=== PATIENT | male | born 1985 | race Caucasian/White ===

== ENCOUNTER 2017-10-20 08:25 | Inpatient (IN) | payer OTHER ==
[2017-10-20 10:42] VITALS: BMI 27.9
--- NOTE | 2017-10-20 10:42 | HP ---
Admission ROS [facility] Chief Complaint: Patient presents for Marajuana dependence. History of Present Illness: Patient presents for Marajuana dependence. Has history of Bipolar and Schizophrenia. Currently lives in detention in [place] and is unemployed. Patient started using Marajuana at age 19. Smokes up to one bag daily. Also reports he sniffs cocaine at least once a month. Denies ETOH and Heroin use. Last time he smoked Marajuana was 10/19/17 and used cocaine was over one week ago. Denies attempting rehab in past. Denies SI/HI and suicide attempts. Exam Limitations: No Limitations - Ebola screening Have you traveled outside of the country in the last 21 days: No (N) Have you had contact with anyone from an Ebola affected area: No Have you been sick,other than usual withdrawal symptoms: No Do you have a fever: No - Review of Systems Constitutional: Changes in sleep, Weight Stable EENT: reports: Blurred Vision Respiratory: reports: No Symptoms reported Cardiac: reports: No Symptoms Reported GI: reports: No Symptoms Reported : reports: No Symptoms Reported Musculoskeletal: reports: No Symptoms Reported Integumentary: reports: No Symptoms Reported Neuro: reports: Headache Endocrine: reports: No Symptoms Reported Hematology: reports: No Symptoms Reported (Confused to date, but knows month and year.) Psychiatric: reports: Anxious, Depressed, Disorientated Patient History - Patient Medical History Hx Anemia: No Hx Asthma: No Hx Chronic Obstructive Pulmonary Disease (COPD): No Hx Cancer: No Hx Cardiac Disorders: No Hx Congestive Heart Failure: No Hx Hypertension: No Hx Hypercholesterolemia: No Hx Pacemaker: No HX Cerebrovascular Accident: No Hx Seizures: No Hx Dementia: No Hx Diabetes: No Hx Gastrointestinal Disorders: No Hx Liver Disease: No Hx Genitourinary Disorders: No Hx Sexually Transmitted Disorders: No Hx Renal Disease (ESRD): No Hx Thyroid Disease: No Hx Human Immunodeficiency Virus (HIV): No Hx Hepatitis C: No Hx Depression: Yes Hx Suicide Attempt: No Hx Bipolar Disorder: Yes Hx Schizophrenia: Yes - Patient Surgical History Past Surgical History: No Hx Neurologic Surgery: No Hx Cataract Extraction: No Hx Cardiac Surgery: No Hx Lung Surgery: No Hx Breast Surgery: No Hx Breast Biopsy: No Hx Abdominal Surgery: No Hx Appendectomy: No Hx Cholecystectomy: No Hx Genitourinary Surgery: No Hx Orthopedic Surgery: No Anesthesia Reaction: No - PPD History Previous Implant?: Yes Documented Results: Negative w/o proof Implanted On Prior [facility] Admission?: No PPD to be Administered?: Yes - Smoking Cessation Smoking history: Current every day smoker Have you smoked in the past 12 months: Yes Aproximately how many cigarettes per day: 10 Hx Chewing Tobacco Use: No Initiated information on smoking cessation: Yes 'Breaking Loose' booklet given: 10/20/17 - Substance & Tx. History Hx Alcohol Use: No Hx Substance Use: Yes Substance Use Type: Cocaine, Marijuana Hx Substance Use Treatment: No Family Disease History - Family Disease History Family History: Unremarkable Admission Physical Exam [facility] - Physical General Appearance: Yes: Anxious HEENTM: Yes: EOMI, Hearing grossly Normal, Normal ENT Inspection, Normocephalic , Normal Voice, GILLIAN, Pharynx Normal Respiratory: Yes: Chest Non-Tender, Lungs Clear, Normal Breath Sounds, No Respiratory Distress, No Accessory Muscle Use Neck: Yes: No masses,lesions,Nodules, Supple, Trachea in good position Breast: Yes: Breast Exam Deferred Cardiology: Yes: Regular Rhythm, Regular Rate, S1, S2 Abdominal: Yes: Normal Bowel Sounds, Non Tender, Soft Genitourinary: Yes: Within Normal Limits Back: Yes: Within Normal Limits, Normal Inspection Musculoskeletal: Yes: Within Normal Limits, full range of Motion, Gait Steady Extremities: Yes: Within Normal Limits, Normal Inspection, Normal Range of Motion, Non-Tender Neurological: Yes: bowling pin refinisher II-XII NML intact, Alert, Motor Strength 5/5, Confused ( Date unknown), Depressed Affect Integumentary: Yes: Normal Color, Dry, Warm Lymphatic: Yes: Within Normal Limits - Diagnostic (1) Marijuana dependence Current Visit: Yes Status: Acute (2) Cocaine use Current Visit: Yes Status: Acute (3) Schizophrenia Current Visit: Yes Status: Acute Qualifiers: Schizophrenia type: unspecified Qualified Code(s): F20.9 - Schizophrenia, unspecified (4) Bipolar disorder Current Visit: Yes Status: Acute Qualifiers: Current episode severity: unspecified (5) Nicotine dependence Current Visit: Yes Status: Acute Qualifiers: Nicotine product type: unspecified Cleared for Admission [facility] - Detox or Rehab Claeared for Rehab Admission: Yes [facility] Breath Alcohol Content Breath Alcohol Content: 0 Urine Drug Screen - Results Urine Drug Screen Results: THC-Marijuana Inpatient Rehab Admission - Initial Determination Are CD services needed?: Yes Free of communicable disease: Yes Not in need of hospitalization: Yes - Rehab Admission Criteria Previous failed treatment: Yes Poor recovery environment: Yes Comorbidities: Yes Lacks judgement: Yes Patient is meeting Inpatient Rehab admission criteria:: Yes
[2017-10-20] MEDS ORDERED: MAGNESIUM HYDROX 2400MG/30ML ORAL SUSPENSION 30 ML CUP PO PRN (10:53)
[2017-10-20] MEDS ORDERED: NICOTINE POLACRILEX 2 MG GUM BC PRN (10:53)
[2017-10-20] MEDS ORDERED: MAGNESIUM CITRATE 300 ML BOTTLE PO PRN (10:53)
[2017-10-20] MEDS ORDERED: ACETAMINOPHEN 325 MG TABLET (FP) PO PRN (10:53)
[2017-10-20] MEDS ORDERED: P-EPHED 60MG/TRIPROLIDI 2.5MG TABLET PO PRN (10:53)
[2017-10-20] MEDS ORDERED: MAG HYDROX/AL HYDROX/SIMETH 30 ML UNIT-DOSE CUP PO PRN (10:53)
[2017-10-20] MEDS ORDERED: IBUPROFEN 400 MG TABLET (FP) PO PRN (10:53)
[2017-10-20] MEDS ORDERED: guaiFENesin/D-METHORPHAN HB 10 ML UNIT-DOSE CUPS PO PRN (10:53)
[2017-10-20] MEDS ORDERED: MENTHOL/PHENOL 1 EACH UD MM PRN (10:53)
[2017-10-20] MEDS ORDERED: LOPERAMIDE HCL 2 MG CAPSULE PO PRN (10:53)
[2017-10-20 14:53] LABS: HEMATOCRIT 38.7 % (35.4-49); HEMOGLOBIN 12.9 GM/dL (11.7-16.9); MCH 28.6 pg (25.7-33.7); MCHC 33.3 g/dl (32.0-35.9); MEAN PLT VOLUME 8.2 fl (7.5-11.1); PLATELET COUNT 259 K/MM3 (134-434); RDW 16.4 % (11.9-15.9); WHITE BLOOD COUNT 12.7 K/mm3 (4.0-10.0)
[2017-10-20 15:08] LABS: CHLORIDE 109 mmol/L (98-107); POTASSIUM 3.4 mmol/L (3.5-5.1); SODIUM 144 mmol/L (136-145)
[2017-10-20 15:36] LABS: ALBUMIN 4.2 g/dl (3.4-5.0); ALK PHOS 63 U/L (45-117); ANION GAP 9 (8-16); BILIRUBIN,TOTAL 0.3 mg/dL (0.2-1.0); BLOOD UREA NITROGEN 11 mg/dL (7-18); CALCIUM 8.6 mg/dL (8.5-10.1); CO2 26 mmol/L (21-32); CREATININE 0.9 mg/dL (0.7-1.3); GLUCOSE,RANDOM 98 mg/dL (74-106); SGOT/AST 22 U/L (15-37); SGPT/ALT 23 U/L (12-78); TOT PROT 7.8 g/dl (6.4-8.2)
[2017-10-20] MEDS ORDERED: TUBERCULIN PPD 5 TU/0.1ML VIAL ID ONE (16:55)
[2017-10-20] MEDS ORDERED: MELATONIN 5 MG TABLETS PO PRN (22:00)
[2017-10-21] MEDS: THIAMINE HCL 100 MG TABLET (FP) PO SCH ×2 (04:05→22:56)
[2017-10-21] MEDS: traZODone HCL 50 MG TABLET (FP) PO SCH ×2 (04:05→22:56)
[2017-10-21 07:05] VITALS: BP 113/70; PULSE 78; TEMP 97.8
[2017-10-21] MEDS: PRENATAL VITAMINS W/ FOLIC ACID TABLET (FP) PO SCH (10:11)
[2017-10-21] MEDS: NICOTINE 21 MG/24 HOURS TOPICAL PATCH TD SCH (10:12)
--- NOTE | 2017-10-21 11:30 | EKG ---
Test Reason : Blood Pressure : / mmHG Vent. Rate : 064 BPM Atrial Rate : 064 BPM P-R Int : 134 ms QRS Dur : 096 ms QT Int : 374 ms P-R-T Axes : 040 059 050 degrees QTc Int : 385 ms NORMAL SINUS RHYTHM WITH SINUS ARRHYTHMIA NORMAL ECG NO PREVIOUS ECGS AVAILABLE Confirmed by LINDA MARTI MD ([id number]) on 10/21/2017 11:30:20 AM Referred By: Confirmed By:LINDA MARTI MD
--- NOTE | 2017-10-21 13:22 | HP ---
Psychiatrist Admission - Data Date of interview: 10/21/17 Admission source: [facility] Identifying data: This is the first 5N inpatient rehabilitation admission for this 32 year old single male residing in [facility]. Medical History: reports a good physical health, smokes cigarettes 10 a day. Psychiatric History: patient is poor historian, reports was diagnosed as "bipolar, schizophrenia", first psychiatric contact at age of 21, unable to recall details of his visit, admits one or two psychiatric hospitalizations , states he currently on seroquel trazodone, cogentin and abilify, unknown dosage , then later reported that he gats injectible abilify and had it last week, again does not know dosage. He reports he sees the psychiatrist at [facility] , last took medications 2 days ago, reports history of auditory hallucinations, denies experiencing at present time, denies history of suicidal or homicidal thoughts/attempts. Physical/Sexual Abuse/Trauma History: denies history of abuse Vital Signs: Vital Signs - 24 hr 10/20/17 10/21/17 10/21/17 15:09 00:38 03:30 Temperature 98.7 F Pulse Rate 93 H Respiratory 18 18 18 Rate Blood Pressure 133/78 10/21/17 07:04 Temperature 97.8 F Pulse Rate 78 Respiratory 18 Rate Blood Pressure 113/70 Allergies/Adverse Reactions: Allergies Allergy/AdvReac Type Severity Reaction Status Date / Time No Known Allergies Allergy Verified 10/20/17 14:22 Date of last physical exam: 10/20/17 Concur with the findings of this exam: Yes - Substance Abuse/Tx History Hx Alcohol Use: No Substance Use Type: Cocaine (once a month), Marijuana (1 bag daily) Hx Substance Use Treatment: Yes Mental Status Exam - Mental Status Exam Alert and Oriented to: Place, Person Cognitive Function: Impaired Patient Appearance: Well Groomed Mood: Sad Affect: Mood Congruent Patient Behavior: Appropriate, Cooperative Speech Pattern: Clear, Appropriate Voice Loudness: Normal Thought Process: Goal Oriented Thought Disorder: Not Present Hallucinations: Denies, Auditory (past history of hearing voices) Suicidal Ideation: Denies Homicidal Ideation: Denies Sleep: Fair Appetite: Fair Muscle strength/Tone: Normal Psychiatric Findings - Problem List ([place] 1, 2,3) (1) Cocaine use Current Visit: Yes Status: Acute (2) Marijuana dependence Current Visit: Yes Status: Acute (3) Nicotine dependence Current Visit: Yes Status: Acute Qualifiers: Nicotine product type: unspecified (4) Schizophrenia Current Visit: Yes Status: Acute Qualifiers: Schizophrenia type: unspecified Qualified Code(s): F20.9 - Schizophrenia, unspecified - Initial Treatment Plan Initial Treatment Plan: will add cogentin 0.5 mg po daily, will obtain collateral information from [facility], monitor progress as needed.
[2017-10-21] MEDS: hydrOXYzine PAMOATE 50 MG CAPSULE (FP) PO PRN ×2 (15:08→20:40)
[2017-10-22] MEDS ORDERED: BENZTROPINE MESYLATE 1 MG TABLET (FP) PO SCH (10:00)
[2017-10-22] MEDS: PRENATAL VITAMINS W/ FOLIC ACID TABLET (FP) PO SCH (10:03)
[2017-10-22] MEDS: NICOTINE 21 MG/24 HOURS TOPICAL PATCH TD SCH (10:05)
--- NOTE | 2017-10-22 10:09 | PN ---
Psychiatric Progress Note Vital Signs: Vital Signs Period Temp Pulse Resp BP Sys/Man Pulse Ox Last 24 Hr 16-16 Date of Session: 10/22/17 Chief Complaint:: AMA Discharge Note HPI: Patient addressing Cannabis Dependence, Cocaine Abuse comorbid with Nicotine Dependence and Schizophrenia Current Medications: Active Medications Generic Name Dose Route Start Last Admin Trade Name Freq PRN Reason Stop Dose Admin Acetaminophen 650 mg 10/20/17 10:53 Tylenol - PO Q4H PRN FEVER Al Hydroxide/Mg Hydroxide 30 ml 10/20/17 10:53 Mylanta Oral Suspension - PO Q6H PRN DYSPEPSIA Benztropine Mesylate 0.5 mg 10/22/17 10:00 Cogentin - PO DAILY KATRIN Eucalyptus/Menthol/Phenol/Sorbitol 1 each 10/20/17 10:53 Cepastat Lozenge - MM Q4H PRN SORE THROAT Guaifenesin 10 ml 10/20/17 10:53 Robitussin Dm - PO Q6H PRN COUGH Hydroxyzine Pamoate 50 mg 10/20/17 10:53 10/21/17 20:40 Vistaril - PO 50 mg Q4H PRN Administration AGITATION Ibuprofen 400 mg 10/20/17 10:53 Motrin - PO Q6H PRN Pain level 4-6 Loperamide HCl 4 mg 10/20/17 10:53 Imodium - PO Q6H PRN DIARRHEA Magnesium Citrate 300 ml 10/20/17 10:53 Citroma - PO Q48H PRN CONSTIPATION Magnesium Hydroxide 30 ml 10/20/17 10:53 Milk Of Magnesia - PO DAILY PRN CONSTIPATION Melatonin 5 mg 10/20/17 22:00 Melatonin PO HS PRN INSOMNIA Nicotine 21 mg 10/21/17 10:00 10/21/17 10:12 Nicoderm Patch - TD Not Given DAILY KATRIN Nicotine Polacrilex 2 mg 10/20/17 10:53 Nicorette Gum - BC Q2H PRN NICOTINE REPLACEMENT RX Multivit/Folic Acid/Iron 1 tab 10/21/17 10:00 10/21/17 10:11 Vitamins ([facility]) - PO 1 tab DAILY KATRIN Administration Pseudoephedrine/Triprolidine 1 combo 10/20/17 10:53 Actifed - PO TID PRN NASAL CONGESTION Thiamine HCl 100 mg 10/20/17 22:00 10/21/17 22:56 Vitamin B1 - PO Not Given HS KATRIN Trazodone HCl 50 mg 10/20/17 22:00 10/21/17 22:56 Desyrel - PO Not Given HS KATRIN Current Side Effect: No Lab tests ordered: Yes Lab tests reviewed: Yes Provider note:: Patient wants to leave today without completing the program. Claims he was here because he did not have medications and a place to stay but now he has both medications and a place to stay. He is determined to leave despite encouragement to stay and complete this program. Scripts for 30 days supply of Cogentin 0.5 mg po daily and Trazadone 50 mg po HS are electronically transmitted to [facility] at [address] [place] [address]. He is stable for leaving against medical advice Total face to face time:: 25 Mental Status Exam - Mental Status Exam Alert and Oriented to: Time, Place, Person Cognitive Function: Fair Patient Appearance: Well Groomed Mood: Hopeful, Euthymic Affect: Appropriate Patient Behavior: Cooperative Speech Pattern: Clear Voice Loudness: Normal Thought Process: Intact, Goal Oriented Thought Disorder: Not Present Hallucinations: Denies Suicidal Ideation: Denies Homicidal Ideation: Denies Insight/Judgement: Poor Sleep: Fair Appetite: Good Muscle strength/Tone: Normal Gait/Station: Normal Psychiatric Treatment Plan - Problem List (1) Cannabis dependence Current Visit: Yes (2) Cocaine abuse Current Visit: Yes (3) Nicotine dependence Current Visit: Yes Qualifiers: Nicotine product type: unspecified (4) Schizophrenia Current Visit: Yes Qualifiers: Schizophrenia type: unspecified Qualified Code(s): F20.9 - Schizophrenia, unspecified Initial treatment plan: Patient is leaving AM
== END 2017-10-22 10:35 | disposition left against medical advice (07) | DRG 770 ==
LOC: YASAS 08:25 → Y5N 12:12
PROVIDERS: ADMIT Psychiatry & Neurology Psychiatry; ATTEND Psychiatry & Neurology Psychiatry
PROC: HZ42ZZZ Group Counseling for Substance Abuse Treatment, Cognitive-Behavioral (ICD-10-PCS; principal; 2017-10-20)
DX: F14.20 Cocaine dependence, uncomplicated (principal); F12.20 Cannabis dependence, uncomplicated; F17.210 Nicotine dependence, cigarettes, uncomplicated; F20.9 Schizophrenia, unspecified; F31.9 Bipolar disorder, unspecified
CPT/HCPCS: 36415; 80053; 85027; 86593; 93005; 93010

== ENCOUNTER 2022-03-03 16:25 | Inpatient (IN) | payer BC ==
[2022-03-03 19:42] VITALS: BMI 33.3
[2022-03-03] MEDS ORDERED: MAGNESIUM CITRATE 300 ML BOTTLE PO PRN (20:56)
[2022-03-03] MEDS ORDERED: P-EPHED 60MG/TRIPROLIDI 2.5MG TABLET PO PRN (20:56)
[2022-03-03] MEDS ORDERED: LOPERAMIDE HCL 2 MG CAPSULE PO PRN (20:56)
[2022-03-03] MEDS ORDERED: NICOTINE POLACRILEX 2 MG GUM BC PRN (20:56)
[2022-03-03] MEDS ORDERED: IBUPROFEN 400 MG TABLET (FP) PO PRN (20:56)
[2022-03-03] MEDS ORDERED: MAG HYDROX/AL HYDROX/SIMETH 30 ML UNIT-DOSE CUP PO PRN (20:56)
[2022-03-03] MEDS ORDERED: guaiFENesin 200 MG/10 ML 10 ML UNIT-DOSE CUPS PO PRN (20:56)
[2022-03-03] MEDS ORDERED: MAGNESIUM HYDROX 2400MG/30ML ORAL SUSPENSION 30 ML CUP PO PRN (20:56)
[2022-03-03] MEDS ORDERED: ACETAMINOPHEN 325 MG TABLET (FP) PO PRN (20:56)
[2022-03-03] MEDS ORDERED: traZODone HCL 50 MG TABLET (FP) PO ONE (23:38)
[2022-03-03] MEDS ORDERED: cloNIDine HCL 0.1 MG TABLET PO ONE (23:39)
[2022-03-03] MEDS ORDERED: cloNIDine HCL 0.1 MG TABLET ONE (23:47)
[2022-03-04 00:53] VITALS: TEMP 97.1
[2022-03-04] MEDS: THIAMINE HCL 100 MG TABLET (FP) PO SCH ×2 (01:18→21:36)
[2022-03-04] MEDS ORDERED: TUBERCULIN PPD 5 TU/0.1ML VIAL ID ONE (08:57)
[2022-03-04] MEDS: PRENATAL VITAMINS W/ FOLIC ACID TABLET (FP) PO SCH (10:24)
[2022-03-04 12:43] LABS: HEMATOCRIT 36.7 % (35.4-49); MCH 29.5 pg (25.7-33.7); MCHC 32.7 g/dl (32.0-35.9); MEAN CELL VOLUME 90.3 fl (80-96); MEAN PLT VOLUME 7.7 fl (7.5-11.1); PLATELET COUNT 322 10^3/uL (134-434); RBC 4.07 M/mm3 (4.00-5.60); RDW 14.6 % (11.9-15.9); WHITE BLOOD COUNT 10.3 K/mm3 (4.0-10.0)
[2022-03-04 12:50] LABS: ALBUMIN 3.9 g/dl (3.4-5.0); BLOOD UREA NITROGEN 13.2 mg/dL (7-18); CALCIUM 8.8 mg/dL (8.5-10.1)
[2022-03-04 12:54] LABS: CREATININE 0.7 mg/dL (0.55-1.3)
[2022-03-04 12:55] LABS: BILIRUBIN,TOTAL 0.4 mg/dL (0.2-1); TOT PROT 7.6 g/dl (6.4-8.2)
[2022-03-04 13:15] LABS: SYPHILIS W/ RPR CONF NON-REACTIVE (NONREACTIVE)
[2022-03-04] MEDS: BENZTROPINE MESYLATE 1 MG TABLET PO SCH (13:19)
[2022-03-04] MEDS: traZODone HCL 50 MG TABLET (FP) PO SCH (21:36)
[2022-03-04] MEDS ORDERED: INSULIN (NOVOLOG) ASPART 100 UNITS/ML 10ML VIAL ONE (21:46)
[2022-03-05] MEDS: BENZTROPINE MESYLATE 1 MG TABLET PO SCH (09:39)
[2022-03-05] MEDS: PRENATAL VITAMINS W/ FOLIC ACID TABLET (FP) PO SCH (09:39)
[2022-03-05] MEDS: MELATONIN 5 MG TABLETS PO PRN (21:34)
[2022-03-05] MEDS: THIAMINE HCL 100 MG TABLET (FP) PO SCH (21:34)
[2022-03-05] MEDS: traZODone HCL 50 MG TABLET (FP) PO SCH (21:35)
[2022-03-06] MEDS: BENZTROPINE MESYLATE 1 MG TABLET PO SCH (09:17)
[2022-03-06] MEDS: PRENATAL VITAMINS W/ FOLIC ACID TABLET (FP) PO SCH (09:18)
[2022-03-06 10:38] VITALS: BP 121/77; PULSE 99; RESP 17
[2022-03-06] MEDS: traZODone HCL 50 MG TABLET (FP) PO SCH (22:09)
[2022-03-06] MEDS: hydrOXYzine PAMOATE 25 MG CAPSULE (FP) PO PRN (22:09)
[2022-03-06] MEDS: THIAMINE HCL 100 MG TABLET (FP) PO SCH (22:09)
[2022-03-06] MEDS: MELATONIN 5 MG TABLETS PO PRN (22:10)
[2022-03-07] MEDS: BENZTROPINE MESYLATE 1 MG TABLET PO SCH (09:49)
[2022-03-07] MEDS: hydrOXYzine PAMOATE 25 MG CAPSULE (FP) PO PRN (09:50)
[2022-03-07] MEDS: PRENATAL VITAMINS W/ FOLIC ACID TABLET (FP) PO SCH (09:50)
[2022-03-07] MEDS ORDERED: NICOTINE 10 MG CARTRIDGE (INHALER) IH SCH (15:45)
== END 2022-03-07 19:50 | disposition left against medical advice (07) | DRG 770 ==
LOC: YASAS 16:25 → Y3E 21:44
PROVIDERS: ADMIT Allergy & Immunology; ATTEND Allergy & Immunology
PROC: HZ42ZZZ Group Counseling for Substance Abuse Treatment, Cognitive-Behavioral (ICD-10-PCS; principal; 2022-03-03)
DX: F19.20 Other psychoactive substance dependence, uncomplicated (principal); F17.210 Nicotine dependence, cigarettes, uncomplicated; F19.282 Other psychoactive substance dependence with psychoactive substance-induced sleep disorder; F20.9 Schizophrenia, unspecified; F19.24 Other psychoactive substance dependence with psychoactive substance-induced mood disorder
CPT/HCPCS: 36415; 80053; 85027; 86780; 86803; C9803-CS; U0003; U0005